=== PATIENT | male | born 1935 | race Caucasian/White ===

== ENCOUNTER → 2019-11-27 | Outpatient (CLI) | payer MEDICARE ==
--- NOTE | 2019-11-27 15:35 | US ---
EXAMINATION TYPE: US chest DATE OF EXAM: 11/27/2019 COMPARISON: NONE CLINICAL HISTORY: J90 PLEURAL EFFUSION. Right chest marking TECHNIQUE: Targeted ultrasound of the posterior lower right hemithorax EXAM MEASUREMENTS: Right Pleural Effusion pocket size: 12.4 cm Right skin surface to fluid distance: 2.5 cm Right side marked for possible thoracentesis outside the dept. Pulmonologists are able to review the images in the patient?s EMR. IMPRESSIONS: Large right pleural effusion
== END | disposition home or self-care (01) ==
LOC: RADUSWWP 15:09
PROVIDERS: ATTEND Internal Medicine Critical Care Medicine
DX: J90 Pleural effusion, not elsewhere classified (principal)
CPT/HCPCS: 76604

== ENCOUNTER → 2019-11-28 | Day surgery (SDC) | payer MEDICARE ==
[2019-11-28 11:29] VITALS: TEMP 97.6
[2019-11-28 11:35] VITALS: RESP 20
[2019-11-28 12:34] VITALS: BP 110/76; PULSE 72
--- NOTE | 2019-11-28 12:53 | XR ---
EXAMINATION TYPE: XR chest 1V portable DATE OF EXAM: 11/28/2019 COMPARISON: 11/26/2019 HISTORY: Post right thoracentesis TECHNIQUE: Single frontal view of the chest is obtained. FINDINGS: There is a large area of consolidation pleural effusion on the right. Left lung clear. Pos tsurgical change involving the left shoulder. Humerus is not identified. There is a metallic screw th rough the glenoid. Metal screw also appears to be extending through the upper margin of the scapula. Left lung clear. No overt failure. Heart size normal. Hypertrophic and degenerative change of the spi ne. IMPRESSION: 1. No evidence of pneumothorax. 2. Interval improvement with reduction in amount of pleural fluid and consolidation on the right post thoracentesis
--- NOTE | 2019-11-29 01:37 | PCN ---
PROCEDURE NOTE PROCEDURE: Right thoracentesis. PREOPERATIVE DIAGNOSIS: Exudative pleural effusion, rule out malignancy. POSTOPERATIVE DIAGNOSIS: Exudative pleural effusion, rule out malignancy. SAMPLE FINISHER: Dr. Guevara. There was informed consent and universal timeout. Indication Pleural effusion. A time-out was completed verifying correct patient, procedure, site, positioning , and implant (s) or special equipment if applicable. Ultrasound guidance was used and appropriate fluid pocket was identified and marked. Patient was positioned, prepped and draped in usual sterile fashion. Lidocaine was used to anesthetize the area. A Thoracentesis catheter was introduced into the pleural space and fluid was removed. Blood loss was none. A chest x-ray was ordered to evaluate for pneumothorax. Total Fluid Removed: 2300 mL. Color of Fluid: Bloody. Fluid was sent for cytology. Patient tolerated the procedure well and there were no complications. The right posterior chest was marked by ultrasound. There was no immediate complications. 2300 mL of fluid was removed from the right pleural space. It was bloody. The patient tolerated the procedure well. A chest x-ray was ordered to rule out pneumothorax. Again, there was no immediate complication. The patient tolerated the procedure very well. The only thing sent for analysis was the fluid for cytology. The previous thoracenteses were all sent for microbiology and chemistry. That is not needed on this the procedure today. MMODL / IJN: [id number] /
== END ==
LOC: PROCWHC3 10:50
PROVIDERS: ATTEND Internal Medicine Critical Care Medicine
DX: J90 Pleural effusion, not elsewhere classified (principal); I10 Essential (primary) hypertension; E11.9 Type 2 diabetes mellitus without complications; E78.5 Hyperlipidemia, unspecified; D64.9 Anemia, unspecified; C64.9 Malignant neoplasm of unspecified kidney, except renal pelvis; E87.1 Hypo-osmolality and hyponatremia; Z79.82 Long term (current) use of aspirin; Z79.84 Long term (current) use of oral hypoglycemic drugs; Z79.899 Other long term (current) drug therapy; Z85.830 Personal history of malignant neoplasm of bone; Z87.891 Personal history of nicotine dependence; Z85.828 Personal history of other malignant neoplasm of skin; Z90.5 Acquired absence of kidney; Z98.890 Other specified postprocedural states
CPT/HCPCS: 32554; 71045; 88108; 88305

== ENCOUNTER 2019-12-10 10:01 | Day surgery (SDC) | payer MEDICARE ==
[2019-12-05 13:46] VITALS: BMI 24.3
[~2019-12-10 10:01] MED LIST: DEXAMETHASONE SOD PHOSPHATE 10 MG/ML 1 ML VIAL IV ONE; HYDROmorphone 0.5 MG/0.5 ML SYRINGE IVP PRN; LACTATED RINGERS 1,000 ML IV SCH; ONDANSETRON 4 MG/2 ML VIAL IVP ONE
[2019-12-10 10:52] VITALS: RESP 20; TEMP 96.9
[2019-12-10 10:53] LABS: Glucose,Whole Blood 146 mg/dL (75-99)
[2019-12-10] MEDS ORDERED: LIDOCAINE 1% (10MG/ML) FOR IV START INTRADERMA ONE (11:09)
[2019-12-10] MEDS ORDERED: ONDANSETRON 4 MG/2 ML VIAL ONE (11:26)
[2019-12-10] MEDS ORDERED: fentaNYL (PF) 50 MCG/ML 2 ML AMP ONE (11:44)
[2019-12-10] MEDS ORDERED: MIDAZOLAM 2 MG/2 ML VIAL ONE (11:44)
[2019-12-10] MEDS ORDERED: LIDOCAINE 1% INJ 10MG/ML (10 ML MDV) SQ ONE ×2 (12:06)
[2019-12-10] MEDS ORDERED: ACETAMINOPHEN TAB 500 MG TAB PO PRN (12:28)
--- NOTE | 2019-12-10 12:32 | P.OP ---
Date of Procedure: 12/10/19 Preoperative Diagnosis: Recurrent right pleural effusion Postoperative Diagnosis: Same Procedure(s) Performed: Insertion right Pleurx catheter with fluoroscopy Implants: Pleurx catheter Anesthesia: MAC Surgeon: Leonard Swanson Bladder Trimmer #1: Sergio Sethi Estimated Blood Loss (ml): 1 IV fluids (ml): 800 Pathology: other (Pleural fluid for cytology) Condition: stable Disposition: PACU Indications for Procedure: 83-year-old male with recurrent right pleural effusion and shortness of breath Operative Findings: Over 3 L of serous fluid was drained Description of Procedure: The patient was brought to the operating room, placed supine on the operating table, the left arm was tucked at the side, the right arm was out on an arm board. IV sedation was given. The right anterior lateral chest and right upper quadrant were sterilely prepped and draped. After timeout 1% lidocaine was used to anesthetize an area overlying the seventh interspace in the anterior axillary line. Skin a needle was used to localize that this was in contact with pleural fluid. The tract was anesthetized. 18-gauge needle was used to puncture the pleural space at this site and a guidewire was threaded into the chest under fluoroscopic guidance. The site was then enlarged to just over a centimeter. 1% lidocaine was used to anesthetize an adjacent area just below the costal margin in the right upper quadrant. Incision was made here just under a centimeter. Pleurx catheter was tunneled from here to the wire site and the cuff positioned just under the skin at the exit site. Introducer and dilator were placed over the guidewire under fluoroscopic guidance at the entrance site and position in the chest was confirmed. The attention Duser was used to introduce the catheter into the pleural space and then the introducer sheath was split and removed. Pleurx catheter was then connected to suction at the pleural fluid collected. Over 3 L of pleural fluid were collected. The Pleurx catheter was secured at the exit site with 2-0 silk. The entrance site was closed with 4-0 Vicryl in 2 layers. Give glue was tied to this incision and a standard Pleurx catheter dressing used at the exit site after capping the Pleurx catheter. Patient tolerated the procedure well. Plan - Discharge Summary Discharge Rx Participant: No New Discharge Prescriptions: No Action Glimepiride [Amaryl] 2 mg PO BID Ferrous Sulfate [Iron] 325 mg PO DAILY Enalapril [Vasotec] 10 mg PO DAILY Aspirin 81 mg PO DAILY Simvastatin [Zocor] 20 mg PO DAILY metFORMIN HCL 1,000 mg PO BID Discharge Medication List Aspirin 81 mg PO DAILY 11/28/19 [History] Enalapril [Vasotec] 10 mg PO DAILY 11/28/19 [History] Ferrous Sulfate [Iron] 325 mg PO DAILY 11/28/19 [History] Glimepiride [Amaryl] 2 mg PO BID 11/28/19 [History] Simvastatin [Zocor] 20 mg PO DAILY 11/28/19 [History] metFORMIN HCL 1,000 mg PO BID 12/05/19 [History]
--- NOTE | 2019-12-10 12:53 | XR ---
EXAMINATION TYPE: XR chest 1V portable DATE OF EXAM: 12/10/2019 COMPARISON: Prior chest x-ray 11/28/2019 HISTORY: Status post pleural catheter placement TECHNIQUE: Single frontal view of the chest is obtained. FINDINGS: There is been interval placement of a right-sided pleural catheter. No evident pneumothora x. There may be slight reduction in amount of pleural fluid on the right. No other significant interv al change. IMPRESSION: No evident complication status post pleural catheter drainage placement.
--- NOTE | 2019-12-10 13:10 | FL ---
Fluoroscopy History: PLEURX CATH INSERTION PLEURX CATH INSERTION. Fluoro time: 8 sec. Leonard Swanson.
[2019-12-10 13:52] VITALS: BP 101/62; PULSE 77
== END 2019-12-10 14:14 | disposition home health service (06) ==
LOC: OR 10:01
PROVIDERS: ATTEND Thoracic Surgery (Cardiothoracic Vascular Surgery)
DX: J90 Pleural effusion, not elsewhere classified (principal); I10 Essential (primary) hypertension; E78.5 Hyperlipidemia, unspecified; E11.9 Type 2 diabetes mellitus without complications; Z87.891 Personal history of nicotine dependence; Z79.82 Long term (current) use of aspirin; Z79.84 Long term (current) use of oral hypoglycemic drugs; Z79.899 Other long term (current) drug therapy; Z85.528 Personal history of other malignant neoplasm of kidney; Z90.5 Acquired absence of kidney; Z85.828 Personal history of other malignant neoplasm of skin; Z80.0 Family history of malignant neoplasm of digestive organs
CPT/HCPCS: 32550; 88108; 88305; 71045; J2250; J2405; J0690; J3010; J2001